=== PATIENT | female | born 1970 | race Caucasian/White ===

== ENCOUNTER 2020-04-06 04:43 | Emergency (ER) | payer MEDICAID, OTHER ==
[~2020-04-06] VITALS: Ht 162.6 cm; Wt 63.5 kg
--- NOTE | 2020-04-06 04:51 | NUR ---
PT AAOX4. BIBRA FOR HEADACHE bibra 3AND NAUSEA. PT PALCED IN BED 10 ON MONITOR AND PULSE OX. AT BEDSIDE FOR EVAL. AWAITING ORDERS.
[2020-04-06] MEDS ORDERED: SUMATRIPTAN SUCCINATE 6 MG/0.5 ML VIAL SQ ONE (05:09)
[2020-04-06] MEDS ORDERED: METOCLOPRAMIDE HCL 10 MG/2 ML VIAL ONE (05:09)
[2020-04-06] MEDS: SUMATRIPTAN SUCCINATE 6 MG/0.5 ML VIAL SQ ONE (05:16)
[2020-04-06] MEDS: METOCLOPRAMIDE HCL 10 MG/2 ML VIAL IV ONE (05:16)
[2020-04-06] MEDS: IV NS 0.9% 1,000 ML BAG IV ONE (05:17)
[2020-04-06] MEDS ORDERED: diphenhydrAMINE HCL 50 MG/ML VIAL ONE (05:54)
[2020-04-06] MEDS ORDERED: KETOROLAC TROMETHAMINE INJ 30 MG/ML VIAL ONE (05:54)
[2020-04-06] MEDS: diphenhydrAMINE HCL 50 MG/ML VIAL IV ONE (05:59)
[2020-04-06] MEDS: KETOROLAC TROMETHAMINE INJ 30 MG/ML VIAL IV ONE (05:59)
--- NOTE | 2020-04-06 06:59 | NUR ---
IV removed. Catheter intact and site benign. Pressure and 4x4 applied to site. No bleeding noted.
[2020-04-06 07:09] VITALS: BP 131/76
--- NOTE | 2020-04-06 07:09 | NUR ---
Patient discharged to home in stable condition. Written and verbal after care instructions given. Patient verbalizes understanding of instruction. Pt ambulated out of E.D. VSS.
== END 2020-04-06 07:10 | disposition home or self-care (01) ==
LOC: EDBD 04:44 → ER 04:44
DX: G43.909 Migraine, unspecified, not intractable, without status migrainosus (principal); I10 Essential (primary) hypertension; R11.2 Nausea with vomiting, unspecified; Z60.2 Problems related to living alone
CPT/HCPCS: 96361; 96372; 96374; 96375; 99284; J1200; J1885; J2765; J3030

== ENCOUNTER 2022-12-04 13:19 | Emergency (ER) | payer OTHER ==
[~2022-12-04] VITALS: Ht 149.9 cm; Wt 59.0 kg
[2022-12-04 13:45] VITALS: BP 124/74; TEMP 98.1
[2022-12-04] MEDS ORDERED: FLUORESCEIN SODIUM OPHTH 1 EA STRIP ONE (14:08)
[2022-12-04] MEDS ORDERED: CIPR5DRO18 RIGHTEYE (14:40)
[2022-12-04 14:45] VITALS: O2SAT 97
== END 2022-12-04 14:46 | disposition home or self-care (01) ==
LOC: ER 13:29
DX: H10.9 Unspecified conjunctivitis (principal); I10 Essential (primary) hypertension; Z60.2 Problems related to living alone

== ENCOUNTER 2023-09-15 22:27 | Inpatient (IN) | payer OTHER ==
[~2023-09-15] VITALS: Ht 162.6 cm; Wt 63.5 kg
[~2023-09-15 22:27] MED LIST: CIPR5DRO18 RIGHTEYE
[2023-09-15] MEDS ORDERED: PIPERACI/TAZO 3.375GM/D5W 50ML PB IV ONE (22:56)
[2023-09-15] MEDS ORDERED: ONDANSETRON HCL/PF 4 MG/2 ML VIAL ONE (22:56)
[2023-09-15] MEDS ORDERED: FAMOTIDINE/PF INJ 20 MG/2 ML VIAL IV ONE (22:56)
[2023-09-15 23:13] LABS: BASOPHILS % (AUTO) 0.3 % (0.0-2.0); EOSINOPHILS % (AUTO) 0.2 % (0.0-6.0); HEMATOCRIT 29 % (33-45); HEMOGLOBIN 9.6 g/dL (11.5-14.8); LYMPHOCYTES # (AUTO) 0.2 K/uL (0.8-4.8); LYMPHOCYTES % (AUTO) 1.5 % (20.0-44.0); MEAN CORPUSCULAR HEMOGLOBIN 30 PG (26.0-33.0); MEAN CORPUSCULAR HGB CONC 34 g/dl (31.0-36.0); MEAN CORPUSCULAR VOLUME 89 fL (82-100); MONOCYTES # (AUTO) 0.1 K/uL (0.1-1.30); MONOCYTES % (AUTO) 1.2 % (2.0-12.0); NEUTROPHILS # (AUTO) 11.4 K/uL (1.8-8.9); NEUTROPHILS % (AUTO) 96.8 % (43.0-81.0); PLATELET COUNT (AUTO) 103 K/uL (150-450); RED BLOOD CELL COUNT(AUTO) 3.21 MIL/uL (4.0-5.2); RED CELL DISTRIBUTION WIDTH 15.8 % (11.5-15.0); WHITE BLOOD COUNT (AUTO) 11.8 K/uL (4.3-11.0)
[2023-09-15 23:21] LABS: CARBON DIOXIDE 23 mmol/L (21-32); CHLORIDE 104 mmol/L (98-107); CREATININE 1.9 mg/dL (0.6-1.3); GLUCOSE 109 mg/dL (74-106); SODIUM SERUM 140 mmol/L (136-145); UREA NITROGEN, BLOOD 17 mg/dL (7-18)
[2023-09-15 23:26] LABS: INR 1.35 (0.91-1.10); PARTIAL THROMBOPLASTIN TIME 30.9 SEC (24.3-34.3)
[2023-09-15 23:27] LABS: ALANINE AMINOTRANSFERASE 181 U/L (12-78); ALBUMIN 1.8 g/dL (3.4-5.0); ALKALINE PHOSPHATASE 428 U/L (46-116); ASPARTATE AMINOTRANSFERASE 365 U/L (15-37); BILIRUBIN,DIRECT 1.3 mg/dL (0.0-0.2); TOTAL PROTEIN, SERUM 5.9 g/dL (6.4-8.2)
[2023-09-15 23:35] LABS: LACTIC ACID 5.3 mmol/L (0.4-2.0)
[2023-09-15] MEDS: ONDANSETRON HCL/PF 4 MG/2 ML VIAL IVP ONE (23:40)
[2023-09-15] MEDS: IV NS 0.9% 1,000 ML BAG IV ONE (23:41)
[2023-09-15] MEDS: PIPERACILLIN /TAZOBACTAM 3.375 G in IV D5W 50 ML IV ONE (23:41)
[2023-09-15] MEDS: FAMOTIDINE/PF INJ 20 MG/2 ML VIAL IV ONE (23:41)
[2023-09-16] VITALS (74 sets, daily range): BP systolic 74–112; BP diastolic 53–82; TEMP 97.7–98.1; O2SAT 92–99
[2023-09-16] MEDS: ASPIRIN 325 MG TABLET PO ONE
[2023-09-16] MEDS ORDERED: hydrALAZINE HCL IV 20 MG VIAL IV PRN (00:30)
[2023-09-16] MEDS ORDERED: ONDANSETRON HCL/PF 4 MG/2 ML VIAL IVP PRN (00:30)
[2023-09-16] MEDS: IV NS 0.9% 1,000 ML IV SCH (00:47)
[2023-09-16] MEDS: IV NS 0.9% 1,000 ML BAG IV ONE ×2 (00:47)
[2023-09-16] MEDS ORDERED: Calcium Gluconate 0.465 MEQ/ML VIAL IV ONE (00:49)
[2023-09-16] MEDS: Calcium Gluconate 1GM/10ML 4.65 MEQ in IV NS 0.9% 100 ML IV ONE (00:56)
[2023-09-16] MEDS ORDERED: ASPIRIN 325 MG TABLET ONE (00:58)
[2023-09-16] MEDS ORDERED: CEFEPIME 1 GM VIAL ONE (01:57)
[2023-09-16] MEDS: CEFEPIME 1 GM in IV NS 0.9% 50 ML IV ONE (02:53)
[2023-09-16] MEDS: POTASSIUM CL. PREMIX PERIPHER. 50 ML IV SCH ×2 (03:12→05:00)
[2023-09-16] MEDS: NOREPINEPHRINE 8 MG in IV D5W 242 ML IV PRN (03:45)
[2023-09-16] MEDS: NOREPINEPHRINE 8MG/250ML RTU 250 ML IV ONE (04:03)
[2023-09-16 05:28] LABS: LACTIC ACID 4.3 mmol/L (0.4-2.0)
[2023-09-16] MEDS ORDERED: SIMV-46 PO (10:53)
[2023-09-16] MEDS ORDERED: AMLO2.5T4 PO (10:53)
[2023-09-16 11:30] LABS: BASOPHILS # (AUTO) 0.1 K/uL (0.0-0.2); BASOPHILS % (AUTO) 0.4 % (0.0-2.0); HEMATOCRIT 29 % (33-45); HEMOGLOBIN 9.6 g/dL (11.5-14.8); LYMPHOCYTES # (AUTO) 0.3 K/uL (0.8-4.8); LYMPHOCYTES % (AUTO) 1.3 % (20.0-44.0); MEAN CORPUSCULAR HEMOGLOBIN 30 PG (26.0-33.0); MEAN CORPUSCULAR HGB CONC 33 g/dl (31.0-36.0); MEAN CORPUSCULAR VOLUME 90 fL (82-100); MONOCYTES # (AUTO) 0.4 K/uL (0.1-1.30); MONOCYTES % (AUTO) 2.2 % (2.0-12.0); NEUTROPHILS # (AUTO) 19.2 K/uL (1.8-8.9); NEUTROPHILS % (AUTO) 96.1 % (43.0-81.0); PLATELET COUNT (AUTO) 98 K/uL (150-450); RED BLOOD CELL COUNT(AUTO) 3.23 MIL/uL (4.0-5.2); RED CELL DISTRIBUTION WIDTH 16.4 % (11.5-15.0); WHITE BLOOD COUNT (AUTO) 19.9 K/uL (4.3-11.0)
[2023-09-16 12:20] LABS: ANISOCYTOSIS 1+; BAND % (MANUAL) 10 % (0.0-5.0); BASOPHILS % (MANUAL) 0 % (0.0-2.0); EOSINOPHILS % (MANUAL) 0 % (0-4); LYMPHOCYTES % (MANUAL) 2 % (16-48); MONOCYTES % (MANUAL) 3 % (0-11.0); NEUTROPHILS % (MANUAL) 85 (42-76); PLATELET ESTIMATE DECREASED
[2023-09-16] MEDS: ACETAMINOPHEN 325 MG TABLET PO PRN (12:23)
[2023-09-16] MEDS: CEFEPIME 1 GM in IV D5W 50 ML IV SCH (15:47)
[2023-09-16 16:33] LABS: CREATININE, URINE 28.7 MG/DL (30.0-125.0)
[2023-09-16 16:37] LABS: APPEARANCE,URINE CLOUDY (CLEAR); COLOR,URINE YELLOW (YELLOW); PH,URINE 6.5 (5.0-8.0); PROTEIN,URINE TRACE mg/dl (NEGATIVE); UGLUCOSE NEGATIVE (NEGATIVE)
[2023-09-16 16:38] LABS: BILIRUBIN,URINE NEGATIVE (NEGATIVE); BLOOD, URINE 3+ Ery/uL (NEGATIVE); KETONES,URINE NEGATIVE (NEGATIVE); LEUKOCYTE ESTERASE ,URINE 3+ (NEGATIVE); NITRITE, URINE NEGATIVE (NEGATIVE); UROBILINOGEN,URINE 0.2 EU/dL (0.2)
[2023-09-16 16:48] LABS: ADD URINE CULTURE YES; BACTERIA,URINE 2+ /HPF (None Seen); EOSINOPHIL,URINE Rare; SQUAMOUS EPITHELIAL CELL,UR Few /HPF (None Seen); WBC,URINE 51-80 /HPF (0-3)
[2023-09-16 17:34] LABS: CALCIUM, SERUM 7.5 mg/dL (8.5-10.1); CREATININE 1.4 mg/dL (0.6-1.3); POTASSIUM 4.4 mmol/L (3.5-5.1)
[2023-09-16 17:40] LABS: ALBUMIN 1.7 g/dL (3.4-5.0); BILIRUBIN,TOTAL 2.2 mg/dL (0.2-1.0); MAGNESIUM 1.8 mg/dL (1.8-2.4); TOTAL PROTEIN, SERUM 5.9 g/dL (6.4-8.2)
[2023-09-16] MEDS: IV NS 0.9% 1,000 ML IV PRN (22:01)
[2023-09-16] MEDS: MORPHINE SULFATE INJ 2 MG/ML DISP.SYRIN IV PRN (22:08)
[2023-09-17] VITALS (74 sets, daily range): BP systolic 88–144; BP diastolic 50–106; TEMP 97.5–98.9; O2SAT 93–99
[2023-09-17 04:36] LABS: BASOPHILS # (AUTO) 0.1 K/uL (0.0-0.2); BASOPHILS % (AUTO) 0.3 % (0.0-2.0); EOSINOPHILS # (AUTO) 0.5 K/uL (0.0-0.7); EOSINOPHILS % (AUTO) 1.6 % (0.0-6.0); HEMATOCRIT 27 % (33-45); LYMPHOCYTES # (AUTO) 1.5 K/uL (0.8-4.8); LYMPHOCYTES % (AUTO) 5.1 % (20.0-44.0); MEAN CORPUSCULAR HEMOGLOBIN 30 PG (26.0-33.0); MEAN CORPUSCULAR HGB CONC 34 g/dl (31.0-36.0); MEAN CORPUSCULAR VOLUME 89 fL (82-100); MONOCYTES # (AUTO) 0.8 K/uL (0.1-1.30); MONOCYTES % (AUTO) 2.6 % (2.0-12.0); NEUTROPHILS # (AUTO) 27.4 K/uL (1.8-8.9); NEUTROPHILS % (AUTO) 90.4 % (43.0-81.0); PLATELET COUNT (AUTO) 123 K/uL (150-450); RED BLOOD CELL COUNT(AUTO) 3.01 MIL/uL (4.0-5.2); RED CELL DISTRIBUTION WIDTH 16.1 % (11.5-15.0)
[2023-09-17 04:47] LABS: WHITE BLOOD COUNT (AUTO) 30.3 K/uL (4.3-11.0)
[2023-09-17 05:01] LABS: ALBUMIN 1.5 g/dL (3.4-5.0); BILIRUBIN,TOTAL 1.8 mg/dL (0.2-1.0); CALCIUM, SERUM 8.5 mg/dL (8.5-10.1); CREATININE 1.3 mg/dL (0.6-1.3); PHOSPHORUS 3.3 mg/dL (2.5-4.9); TOTAL PROTEIN, SERUM 5.9 g/dL (6.4-8.2)
[2023-09-17 05:33] LABS: ANISOCYTOSIS 1+; BAND % (MANUAL) 5 % (0.0-5.0); BASOPHILS % (MANUAL) 0 % (0.0-2.0); EOSINOPHILS % (MANUAL) 1 % (0-4); LYMPHOCYTES % (MANUAL) 7 % (16-48); MONOCYTES % (MANUAL) 4 % (0-11.0); NEUTROPHILS % (MANUAL) 83 (42-76); PLATELET ESTIMATE DECREASED
[2023-09-17] MEDS: ENOXAPARIN SODIUM 40 MG/0.4 ML DISP.SYRIN SQ SCH (08:30)
[2023-09-17] MEDS ORDERED: SIMVASTATIN 20 MG TABLET PO SCH (09:00)
[2023-09-17 11:05] LABS: THYROID STIMULATING HORMONE 2.09 uIU/mL (0.358-3.74)
[2023-09-17] MEDS ORDERED: FENTANYL PF 100MCG/2ML AMPUL IV PRN (16:00)
[2023-09-17] MEDS ORDERED: NALOXONE HCL 0.4 MG/ML AMPUL IV PRN (16:30)
[2023-09-17] MEDS ORDERED: FLUMAZENIL 0.5 MG VIAL IV PRN (16:30)
[2023-09-17] MEDS ORDERED: IOHEXOL 240MG/ML 50 ML IV ONE (17:07)
[2023-09-17] MEDS: MIDAZOLAM HCL 5 MG/5ML VIAL IV ONE (17:48)
[2023-09-17] MEDS: FENTANYL PF 100MCG/2ML AMPUL IV PRN (17:49)
[2023-09-18] VITALS (52 sets, daily range): BP systolic 82–148; BP diastolic 51–104; TEMP 97.6–98.7; O2SAT 91–98
[2023-09-18 04:46] LABS: BASOPHILS # (AUTO) 0.1 K/uL (0.0-0.2); BASOPHILS % (AUTO) 0.4 % (0.0-2.0); EOSINOPHILS # (AUTO) 0.2 K/uL (0.0-0.7); HEMATOCRIT 25 % (33-45); HEMOGLOBIN 8.4 g/dL (11.5-14.8); LYMPHOCYTES # (AUTO) 1.8 K/uL (0.8-4.8); LYMPHOCYTES % (AUTO) 9.9 % (20.0-44.0); MEAN CORPUSCULAR HEMOGLOBIN 30 PG (26.0-33.0); MEAN CORPUSCULAR HGB CONC 33 g/dl (31.0-36.0); MEAN CORPUSCULAR VOLUME 89 fL (82-100); MONOCYTES # (AUTO) 0.5 K/uL (0.1-1.30); MONOCYTES % (AUTO) 2.8 % (2.0-12.0); NEUTROPHILS # (AUTO) 15.8 K/uL (1.8-8.9); NEUTROPHILS % (AUTO) 85.9 % (43.0-81.0); PLATELET COUNT (AUTO) 112 K/uL (150-450); RED BLOOD CELL COUNT(AUTO) 2.85 MIL/uL (4.0-5.2); RED CELL DISTRIBUTION WIDTH 16.4 % (11.5-15.0); WHITE BLOOD COUNT (AUTO) 18.4 K/uL (4.3-11.0)
[2023-09-18 05:11] LABS: BILIRUBIN,TOTAL 1.4 mg/dL (0.2-1.0); CALCIUM, SERUM 7.8 mg/dL (8.5-10.1); POTASSIUM 3.9 mmol/L (3.5-5.1); TOTAL PROTEIN, SERUM 5.7 g/dL (6.4-8.2)
[2023-09-18 05:20] LABS: ALBUMIN 1.4 g/dL (3.4-5.0)
[2023-09-18 09:07] LABS: PTH, INTACT 109 pg/mL (15-65)
[2023-09-18 10:11] LABS: *SPE A/G RATIO 0.6 (0.7-1.7); *SPE ALBUMIN 1.9 g/dL (2.9-4.4); *SPE ALPHA-1-GLOBULIN 0.4 g/dL (0.0-0.4); *SPE ALPHA-2-GLOBULIN 0.9 g/dL (0.4-1.0); *SPE BETA GLOBULIN 0.9 g/dL (0.7-1.3); *SPE GLOBULIN, TOTAL 3.4 g/dL (2.2-3.9); *SPE M-SPIKE Not Observed g/dL (Not Observed); *SPE PROTEIN TOTAL 5.3 g/dL (6.0-8.5); *SPEGAMMA GLOBULIN 1.2 g/dL (0.4-1.8)
[2023-09-19] VITALS (19 sets, daily range): BP systolic 121–152; BP diastolic 76–94; TEMP 97.6–98; O2SAT 92–98
[2023-09-19] MEDS: ZOLPIDEM TARTRATE 5 MG TABLET PO PRN (02:41)
[2023-09-19 04:23] LABS: BASOPHILS % (AUTO) 0.4 % (0.0-2.0); EOSINOPHILS # (AUTO) 0.2 K/uL (0.0-0.7); HEMATOCRIT 26 % (33-45); HEMOGLOBIN 8.5 g/dL (11.5-14.8); LYMPHOCYTES # (AUTO) 1.5 K/uL (0.8-4.8); LYMPHOCYTES % (AUTO) 16.5 % (20.0-44.0); MEAN CORPUSCULAR HEMOGLOBIN 30 PG (26.0-33.0); MEAN CORPUSCULAR HGB CONC 33 g/dl (31.0-36.0); MEAN CORPUSCULAR VOLUME 89 fL (82-100); MONOCYTES # (AUTO) 0.3 K/uL (0.1-1.30); MONOCYTES % (AUTO) 3.6 % (2.0-12.0); NEUTROPHILS # (AUTO) 7.1 K/uL (1.8-8.9); NEUTROPHILS % (AUTO) 77.5 % (43.0-81.0); PLATELET COUNT (AUTO) 108 K/uL (150-450); RED BLOOD CELL COUNT(AUTO) 2.88 MIL/uL (4.0-5.2); RED CELL DISTRIBUTION WIDTH 16.2 % (11.5-15.0); WHITE BLOOD COUNT (AUTO) 9.1 K/uL (4.3-11.0)
[2023-09-19 04:51] LABS: POTASSIUM 3.3 mmol/L (3.5-5.1)
[2023-09-19 05:58] LABS: BAND % (MANUAL) 3 % (0.0-5.0); LYMPHOCYTES % (MANUAL) 20 % (16-48); MONOCYTES % (MANUAL) 5 % (0-11.0); NEUTROPHILS % (MANUAL) 72 (42-76)
[2023-09-19] MEDS: POTASSIUM CHLORIDE 20 MEQ TAB.PRT.SR PO ONE (11:20)
[2023-09-19] MEDS: ACYCLOVIR 800 MG TABLET PO SCH ×2 (11:20→15:35)
[2023-09-20 06:49] LABS: BASOPHILS # (AUTO) 0.1 K/uL (0.0-0.2); BASOPHILS % (AUTO) 0.5 % (0.0-2.0); EOSINOPHILS # (AUTO) 0.2 K/uL (0.0-0.7); EOSINOPHILS % (AUTO) 1.7 % (0.0-6.0); HEMATOCRIT 27 % (33-45); HEMOGLOBIN 9.2 g/dL (11.5-14.8); LYMPHOCYTES # (AUTO) 1.8 K/uL (0.8-4.8); LYMPHOCYTES % (AUTO) 16.2 % (20.0-44.0); MEAN CORPUSCULAR HEMOGLOBIN 29 PG (26.0-33.0); MEAN CORPUSCULAR HGB CONC 34 g/dl (31.0-36.0); MEAN CORPUSCULAR VOLUME 87 fL (82-100); MONOCYTES # (AUTO) 0.6 K/uL (0.1-1.30); MONOCYTES % (AUTO) 5.8 % (2.0-12.0); NEUTROPHILS # (AUTO) 8.5 K/uL (1.8-8.9); NEUTROPHILS % (AUTO) 75.8 % (43.0-81.0); PLATELET COUNT (AUTO) 145 K/uL (150-450); RED BLOOD CELL COUNT(AUTO) 3.15 MIL/uL (4.0-5.2); RED CELL DISTRIBUTION WIDTH 16.3 % (11.5-15.0); WHITE BLOOD COUNT (AUTO) 11.2 K/uL (4.3-11.0)
[2023-09-20 07:07] LABS: ALBUMIN 1.6 g/dL (3.4-5.0); BILIRUBIN,DIRECT 0.6 mg/dL (0.0-0.2); BILIRUBIN,TOTAL 1.9 mg/dL (0.2-1.0); CALCIUM, SERUM 8.3 mg/dL (8.5-10.1); CREATININE 0.8 mg/dL (0.6-1.3); POTASSIUM 3.6 mmol/L (3.5-5.1); TOTAL PROTEIN, SERUM 6.6 g/dL (6.4-8.2)
[2023-09-20 07:28] LABS: ANISOCYTOSIS 1+; BAND % (MANUAL) 1 % (0.0-5.0); EOSINOPHILS % (MANUAL) 1 % (0-4); LYMPHOCYTES % (MANUAL) 18 % (16-48); MONOCYTES % (MANUAL) 3 % (0-11.0); NEUTROPHILS % (MANUAL) 77 (42-76); PLATELET ESTIMATE DECREASED
[2023-09-20 07:29] LABS: OVALOCYTES 1+
[2023-09-20 08:57] VITALS: BP 148/86; TEMP 98.1; O2SAT 96
[2023-09-20 09:27] VITALS: BP 150/105
[2023-09-20] MEDS: METOPROLOL TARTRATE 50 MG TABLET PO SCH (09:27)
[2023-09-20] MEDS ORDERED: ACYC-108 PO (09:32)
[2023-09-20] MEDS ORDERED: CEFT2VIA14 IV (09:32)
[2023-09-20] MEDS: CEFEPIME 2 GM in IV D5W 100 ML IV SCH (10:57)
== END 2023-09-20 15:25 | disposition home health service (06) | DRG 710 ==
LOC: ER 22:27 → ICU 09-16 01:26 → MED 09-19 14:44
PROVIDERS: ADMIT Internal Medicine; ATTEND Internal Medicine
PROC: 02HV33Z Insertion of Infusion Device into Superior Vena Cava, Percutaneous Approach (ICD-10-PCS; principal; 2023-09-16)
PROC: B548ZZA Ultrasonography of Superior Vena Cava, Guidance (ICD-10-PCS; 2023-09-16)
PROC: 0T133JD Bypass Right Kidney Pelvis to Cutaneous with Synthetic Substitute, Percutaneous Approach (ICD-10-PCS; 2023-09-17)
DX: A41.51 Sepsis due to Escherichia coli [E. coli] (principal); R65.21 Severe sepsis with septic shock; E43 Unspecified severe protein-calorie malnutrition; I21.A1 Myocardial infarction type 2; E87.20 Acidosis, unspecified; D69.6 Thrombocytopenia, unspecified; N17.9 Acute kidney failure, unspecified; E83.51 Hypocalcemia; D62 Acute posthemorrhagic anemia; E88.09 Other disorders of plasma-protein metabolism, not elsewhere classified; N13.6 Pyonephrosis; Z20.822 Contact with and (suspected) exposure to COVID-19; E78.5 Hyperlipidemia, unspecified; I10 Essential (primary) hypertension; D50.9 Iron deficiency anemia, unspecified; E87.6 Hypokalemia; R74.01 Elevation of levels of liver transaminase levels; E80.6 Other disorders of bilirubin metabolism; Z79.899 Other long term (current) drug therapy; B00.9 Herpesviral infection, unspecified; Z87.442 Personal history of urinary calculi; N10 Acute pyelonephritis; N13.9 Obstructive and reflux uropathy, unspecified; N28.1 Cyst of kidney, acquired
CPT/HCPCS: 36415; 36569; 71045-TC; 76700-TC; 76942-TC; 80048-TC; 80053-TC; 80061-TC; 80076-TC; 81001; 82550-TC; 82570-TC; 82728-TC; 83540-TC; 83605-TC; 83735-TC; 83970; 84100-TC; 84155; 84165; 84300-TC; 84439-TC; 84443-TC; 84484-TC; 85025-TC; 85730-TC; 87040-TC; 87081-TC; 87086-TC; 87186-TC; 93307-TC; A4223; G0378; J0610; J0692; J1650; J2250; J2270; J2310; J2405; J2543; J3010; J3480; J3490; J7030; J7050; J7060; Q9966

== ENCOUNTER 2023-10-01 11:06 | Emergency (ER) | payer OTHER ==
[~2023-10-01] VITALS: Ht 149.9 cm; Wt 56.7 kg
[~2023-10-01 11:06] MED LIST changes: +ACYC-108 PO; +AMLO2.5T4 PO; +CEFT2VIA14 IV; -CIPR5DRO18 RIGHTEYE; +SIMV-46 PO
[2023-10-01 11:30] VITALS: BP 97/76; TEMP 98.2; O2SAT 100
== END 2023-10-01 14:33 | disposition home or self-care (01) ==
LOC: ER 11:22
DX: N20.0 Calculus of kidney (principal); I10 Essential (primary) hypertension

== ENCOUNTER 2023-10-15 09:59 | Emergency (ER) | payer OTHER ==
[~2023-10-15] VITALS: Ht 149.9 cm; Wt 47.6 kg
[2023-10-15] MEDS ORDERED: ONDANSETRON HCL/PF 4 MG/2 ML VIAL ONE (10:34)
[2023-10-15] MEDS ORDERED: MORPHINE SULFATE INJ 4 MG/ML DISP.SYRIN ONE (10:34)
[2023-10-15] MEDS: IV NS 0.9% 1,000 ML BAG IV ONE (10:35)
[2023-10-15 10:47] LABS: BASOPHILS % (AUTO) 0.2 % (0.0-2.0); EOSINOPHILS # (AUTO) 0.2 K/uL (0.0-0.7); EOSINOPHILS % (AUTO) 2.4 % (0.0-6.0); HEMATOCRIT 37 % (33-45); HEMOGLOBIN 12.2 g/dL (11.5-14.8); LYMPHOCYTES # (AUTO) 1.4 K/uL (0.8-4.8); LYMPHOCYTES % (AUTO) 19.4 % (20.0-44.0); MEAN CORPUSCULAR HEMOGLOBIN 30 PG (26.0-33.0); MEAN CORPUSCULAR HGB CONC 33 g/dl (31.0-36.0); MEAN CORPUSCULAR VOLUME 92 fL (82-100); MONOCYTES # (AUTO) 0.5 K/uL (0.1-1.30); MONOCYTES % (AUTO) 6.2 % (2.0-12.0); NEUTROPHILS # (AUTO) 5.3 K/uL (1.8-8.9); NEUTROPHILS % (AUTO) 71.8 % (43.0-81.0); PLATELET COUNT (AUTO) 190 K/uL (150-450); RED BLOOD CELL COUNT(AUTO) 4.01 MIL/uL (4.0-5.2); RED CELL DISTRIBUTION WIDTH 17.7 % (11.5-15.0); WHITE BLOOD COUNT (AUTO) 7.4 K/uL (4.3-11.0)
[2023-10-15 10:54] LABS: CALCIUM, SERUM 8.8 mg/dL (8.5-10.1); CREATININE 0.8 mg/dL (0.6-1.3); POTASSIUM 3.7 mmol/L (3.5-5.1)
[2023-10-15] MEDS: ONDANSETRON HCL/PF 4 MG/2 ML VIAL IVP ONE (11:03)
[2023-10-15] MEDS: MORPHINE SULFATE INJ 2 MG/ML DISP.SYRIN IV ONE (11:03)
[2023-10-15 11:05] LABS: LACTIC ACID 0.9 mmol/L (0.4-2.0)
[2023-10-15 11:33] LABS: APPEARANCE,URINE CLOUDY (CLEAR); BILIRUBIN,URINE NEGATIVE (NEGATIVE); BLOOD, URINE TRACE Ery/uL (NEGATIVE); COLOR,URINE YELLOW (YELLOW); KETONES,URINE NEGATIVE (NEGATIVE); NITRITE, URINE NEGATIVE (NEGATIVE); PH,URINE 6.5 (5.0-8.0); PROTEIN,URINE 1+ mg/dl (NEGATIVE); UGLUCOSE NEGATIVE (NEGATIVE); UROBILINOGEN,URINE 0.2 EU/dL (0.2)
[2023-10-15 11:34] LABS: ADD URINE CULTURE YES; BACTERIA,URINE Moderate /HPF (None Seen); LEUKOCYTE ESTERASE ,URINE 3+ (NEGATIVE); SQUAMOUS EPITHELIAL CELL,UR Rare /HPF (None Seen)
[2023-10-15] MEDS ORDERED: CEPH-570 PO (12:24)
[2023-10-15] MEDS ORDERED: CEFTRIAXONE 1GM BAG (ER ONLY) 50 ML IV ONE (12:37)
[2023-10-15] MEDS: CEFTRIAXONE 1GM BAG (ER ONLY) 1 GM/50 ML PIGGYBACK IV ONE (12:40)
[2023-10-15 13:00] VITALS: BP 115/72; TEMP 98; O2SAT 98
== END 2023-10-15 13:00 | disposition home or self-care (01) ==
LOC: ER 10:14
DX: R10.31 Right lower quadrant pain (principal); R10.11 Right upper quadrant pain; Z60.2 Problems related to living alone
CPT/HCPCS: 99285; 74176; 96374; 96375; 96361; 85025; 80048; 87040; 87086; 83605; 81001; 36415; J2270; J2405; J7030 ×2; J0696